=== PATIENT | male | born 1980 | race Caucasian/White ===

== ENCOUNTER 2024-12-15 09:27 | Emergency (ER) | payer OTHER, SELFPAY ==
--- OUTSIDE RECORDS SUMMARY | 2023-11-29 08:45 | XMS_ITS | Continuity of Care Document ---
Author Organization [facility] Address [address] [place] [address] Phone Care Team Providers Care Firer Bisque Kiln Name Role Phone Sona Portillo MD Unavailable Unavailable Allergies, Adverse Reactions, Alerts Substance Reaction Status Criticality No Known Allergies Active No Inform ation Medications Medication Instructions Dosage Effective Dates (start - stop) Status Comments sertraline 100 mg tablet TAKE 1 TABLET BY MOUTH ONCE DAILY TAKE WITH 50MG TABLETS - Active bupropion HCl XL 150 mg 24 hr tablet, extended release - No Longer Active sertraline 50 mg tablet TAKE 1 TABLET BY MOUTH ONCE DAILY. TAKE WITH 100 MG TABLET - No Longer Active Procedures Procedure Date Office o/p est low 20-29 min Advance Directives Directive Yes / No Effective Date File Name No Information Encounters Encounter Description Practice Location Reason(s) For Visit Diagnoses Date Provider Providers Copied on Encounter Office o/p est low 20-29 min [facility], [address] [place], [address], [place] tel:[phone] Urgent Care musculoskelet al pain (chief complaint) Quadriceps tendinitis Sep-0 4 Lindsey Magallanes. [facility], [facility] [place], [place], [id number], [place]. tel:[phone] Referring Provider: Yared Pradhan, [address] [facility] [address], [place], [address]. tel:[phone] Family History Family Member Type Diagnosis Age At Onset No Information Payers Payer name Insurance type Covered green party ID Natacha cowan(s) No Information Social History Type Description Quantity Date Captured Comments Alcohol Use Details Unknown Caffeine Use Details Unknown Tobacco Use Status No Information Smoking Status No Information Sex Male Vital Signs Date / Time: Height Weight BMI Pulse Rate Blood Pressure Temperature Respiratory Rate Body Surface Area Head Circumference Head Circ. Percentile Wt./Michael. Percentile BMI percentile Pulse Ox Inhaled Ox 2:08 PM 123.649 kg (272.60 lbs) 64 /min 114/73 mm[Hg] 98.70 F 18 /min 21 % Chief Complaint And Reason For Visit From encounter dated '11/29/2023 13:45'. musculoskeletal pain (chief complaint). Description: Onset: on 10/28/2023. Severity level is 6. It occurs intermittently. Location: right knee. There is no radiation. The pain is dull, sharp and throbbing. Context: there is no injury. The pain is aggravated by bending and Extending. The pain is relieved by OTC medicines (acetaminophen). Associated symptoms include limping. Pertinent negatives include bruising, swelling, tingling in the legs and weakness. Reason For Referral Reason For Referral No Information Plan Of Treatment Date Type Action Status Goal Diabetes Screeni ng (BMI 25 and above) - HgbA1C. Due on due Goal Lipid panel. Due on 024 due Goal Depression screening. Due on due Goal Td vaccine. Due on due Goal Blood Pressure Screening (An nual). Due on due Goal HIV Screen. Due on due Goal Hepatitis C screening. Due o n due Goal Unhealthy drug use screening . Due on due Goal Tdap. Due on due Goal Influenza vaccine. Due on Se due Goal Alcohol Misuse Screening. Du e on due History Of Present Illness Encounter Date Complaint History Of Prese nt Illness musculoskeletal pain Onset: on 0 10/28/2023. Severity level is 6. It occurs intermittently. Location: right knee. There is no radiation. The pain is dull, sharp and throbbing. Context: there is no injury. The pain is aggravated by bending and Extending. The pain is relieved by OTC medicines (acetaminophen). Associated symptoms include limping. Pertinent negatives include bruising, swelling, tingling in the legs and weakness. Functional Status Date Functional Assessmen t No Information Instructions Date Instruction Additional Infor mation Recommend cold compr esses 10-15 minutes every 3-4 hours while awakeMay use compression sleeve or wrap - Recommend tylenol 1000 mg every 6 hours and/or ibuprofen 600 mg every 6 hour or aleve 1-2 tablet twice per day for pain.- Do exercises 1-2 times per day - F/U with PCP if persist >10-14 days or sooner for worsening Related to Quadriceps tendinitis Assessments Type Assessment Date assessment Quadriceps tendinitis impression Clinically consisten t with inflammation insertion of quadriceps Mental Status Date Cognitive Assessment Orientation - Dawes ed to time, place, person, situation. Patient Care Teams Name Effective Dates (start - stop) Status Members No Information
--- NOTE | ~2024-12-15 | CT_ITS ---
EXAMINATION: CT soft tissue neck w con DATE: 12/15/2024 13:31 INDICATION: Worsening left throat pain TECHNIQUE: Computed tomography (CT) of the neck was performed with 75 mL Omnipaque-350 intravenous contrast. Automated exposure control and iterative reconstruction technique were employed. The dose-length product was 595.90 mGy-cm. COMPARISON: None FINDINGS: Orbits are normal. The paranasal sinuses are clear. Mastoid air cells and middle ear cavities are clear. Submandibular and parotid glands are normal and symmetric. Thyroid gland is unremarkable. There are scattered normal-sized lymph nodes in the neck, no lymphadenopathy. Airway is unremarkable. Cascade and lingual tonsils are unremarkable. There is also normal epiglottis, aryepiglottic folds and retropharyngeal soft tissues. No abnormal masses, abscess or other abnormal fluid collections. The vasculature is patent and normal in caliber. Superior mediastinum is unremarkable. Lung apices are normal. Moderate lower cervical spondylosis. IMPRESSION: 1. Moderate lower cervical spondylosis. Otherwise unremarkable neck CT. Reviewed, dictated and finalized at location A.
--- OUTSIDE RECORDS SUMMARY | 2024-12-15 09:30 | XMS_ITS | Clinical Summary ---
Author Organization [facility] Address [address] [place] [address] Care Team Providers Care Beer Cooler Name Role Phone Unknown, Provider Primary Care Provider Unavaila ble Source Comments [facility],non-owned Affiliates and Associated Physician Practices is amultiple site organization consisting of ambulatory clinics and hospital sitesin [place], [place], [place] and [place]. This disclosure is being madepursuant to the Care Everywhere program and may not contain all information available regarding this patient. Last updated 17.[facility] Allergies No known active allergies Medications * Be aware that medications may not be up to date on this document. Alwaysverify current medications with the patient. No known medications Social History Tobacco Use Types Packs/Day Years Used Date Smoking Tobacco: Never Assessed Sex and Gender Information Value Date Recorded Sex Assigned at Not on file Legal Sex Male 10:27 AM CARDIOVASCULAR RN Gender Identity Not on file Sexual Orientation Not on file Last Filed Vital Signs Vital Sign Reading Time Taken Comments Blood Pressure 124/82 03/24/2016 11:17 AM CARDIOVASCULAR RN Pulse 88 03/24/2016 11:17 AM CARDIOVASCULAR RN Temperature 36.8 C (98.3 F) 03/24/2016 11:17 AM CARDIOVASCULAR RN Respiratory Rate 16 03/24/2016 11:17 AM CARDIOVASCULAR RN Oxygen Saturation 98% 03/24/2016 11:17 AM CARDIOVASCULAR RN Inhaled Oxygen Concentration - - Weight 129.3 kg (285 lb) 03/24/2016 11:17 AM CARDIOVASCULAR RN Height 182.9 cm (6') 03/24/2016 11:17 AM CARDIOVASCULAR RN Body Mass Index 38.65 03/24/2016 11:17 AM CARDIOVASCULAR RN Plan of Treatment Health Maintenance Due Date Last Done Comments LIPID TESTING 1982 HIV SCREENING 1997 HEPATITIS C SCREENING 01/13/2000 DTAP/TDAP/TD VACCINES (1 - Tdap) 2001 HEPATITIS B VACCINE (1 of 3 - 19+ 3-dose series) 2001 HPV VACCINE (1 - 3-dose SCDM series) 2009 DEPRESSION SCREENING 03/29/2024 COVID-19 VACCINE (1 - 4-2 5 season) 2024 INFLUENZA VACCINE (#1) 2024 ZOSTER VACCINE (1 of 2) 01/18/2032 HIB VACCINE Aged Out No longer eligi ble based on patient's age to complete this topic MENINGOCOCCAL (Group B) VACC INE SHARED DECISION-MAKING Aged Out No longer eligibl e based on patient's age to complete this topic MENINGOCOCCAL GROUPS A/C/Y/W VACCINE Aged Out No longer eligible b ased on patient's age to complete this topic PNEUMOCOCCAL VACCINE Aged Out No long er eligible based on patient's age to complete this topic Insurance Care Teams Beer Cooler Relationship Specialty Start Date End Date Unknown, Provider PCP - General 03/24/16
[2024-12-15 10:32] VITALS: BP 135/89; PULSE 95; RESP 18; TEMP 37.6; O2SAT 100
--- OUTSIDE RECORDS SUMMARY | 2024-12-15 12:00 | XMS_ITS | Clinical Summary ---
Author Organization [facility] Address [address] [place] [address] Care Team Providers Care Retort Operator Name Role Phone Unknown, Provider Primary Care Provider Unavaila ble Source Comments [facility],non-owned Affiliates and Associated Physician Practices is amultiple site organization consisting of ambulatory clinics and hospital sitesin [place], [place], [place] and [place]. This disclosure is being madepursuant to the Care Everywhere program and may not contain all information available regarding this patient. Last updated 17.[facility] Allergies No known active allergies Medications * Be aware that medications may not be up to date on this document. Alwaysverify current medications with the patient. No known medications Social History Tobacco Use Types Packs/Day Years Used Date Smoking Tobacco: Never Assessed Sex and Gender Information Value Date Recorded Sex Assigned at Not on file Legal Sex Male 10:27 AM HEDGE TRIMMER Gender Identity Not on file Sexual Orientation Not on file Last Filed Vital Signs Vital Sign Reading Time Taken Comments Blood Pressure 124/82 03/24/2016 11:17 AM HEDGE TRIMMER Pulse 88 03/24/2016 11:17 AM HEDGE TRIMMER Temperature 36.8 C (98.3 F) 03/24/2016 11:17 AM HEDGE TRIMMER Respiratory Rate 16 03/24/2016 11:17 AM HEDGE TRIMMER Oxygen Saturation 98% 03/24/2016 11:17 AM HEDGE TRIMMER Inhaled Oxygen Concentration - - Weight 129.3 kg (285 lb) 03/24/2016 11:17 AM HEDGE TRIMMER Height 182.9 cm (6') 03/24/2016 11:17 AM HEDGE TRIMMER Body Mass Index 38.65 03/24/2016 11:17 AM HEDGE TRIMMER Plan of Treatment Health Maintenance Due Date [...] to complete this topic Insurance Care Teams Retort Operator Relationship Specialty Start Date End Date Unknown, Provider PCP - General 03/24/16
--- OUTSIDE RECORDS SUMMARY | 2024-12-15 12:00 | XMS_ITS | Clinical Summary ---
Author Organization [facility] Address [facility] [place] [address] Care Team Providers Care Transfer Iron Operator Name Role Phone Rebekah Orourke [facility] Primary Care Provider + Allergies No known active allergies Medications escitalopram 10 MG tabletIndication s:Anxiety and depression Take 1 tablet (10 mg total) by mouth daily. 30 tablet 1 01/12/2020 Active buPROPion XL 150 MG 24 hr tabletIndication s:Anxiety and depression Take 1 tablet (150 mg total) by mouth daily. 90 tablet 1 01/12/2020 Active Active Problems No known active problems Family History Medical History Relation Comments None Father Cancer Maternal Grandmother lung peripheral artery disease Mother Relation Status Comments Father Alive Maternal Grandmother Mother Alive Social History Tobacco Use Types Packs/Day Years Used Date Smoking Tobacco: Former Cigarettes 0.3 17 0 06/29/2002 - 06/30/2019 Smokeless Tobacco: Never Alcohol Use Standard Drinks/Week Comments Yes 0 (1 standard drink = 0.6 oz pur e alcohol) Sex and Gender Information Value Date Recorded Sex Assigned at Not on file Legal Sex Male 10:19 AM CDT Gender Identity Not on file Sexual Orientation Not on file Last Filed Vital Signs Vital Sign Reading Time Taken Comments Blood Pressure 138/88 01/12/2020 11:46 AM CDT Pulse 80 01/12/2020 11:46 AM CDT Temperature 37 C (98.6 F) 01/12/2020 11:46 AM CDT Respiratory Rate 20 01/12/2020 11:46 AM CDT Oxygen Saturation 98% 01/12/2020 11:46 AM CDT Inhaled Oxygen Concentration - - Weight 136.5 kg (301 lb) 01/12/2020 11:46 AM CDT Height 182.9 cm (6') 01/12/2020 11:46 AM CDT Body Mass Index 40.82 01/12/2020 11:46 AM CDT Plan of Treatment Health Maintenance Due Date Last Done Comments Annual Physical 1985 Hepatitis C 01/18/2000 DTaP, Tdap and Td Vaccines ( 1 - Tdap) 2001 Hepatitis B Vaccines (1 of 3 - 19+ 3-dose series) 2001 HPV Vaccines (1 - 3-dose SCD M series) 2009 COVID-19 Vaccine ( - 2023-2 5 season) 2024 Meningococcal B Vaccine Aged Out No l onger eligible based on patient's age to complete this topic Meningococcal Vaccine Aged Out No anita bernie eligible based on patient's age to complete this topic Pneumococcal Vaccine: Pediat rics (0 to 5 Years) and At-Risk Patients (6 to 49 Years) Aged Out No longer eligible b ased on patient's age to complete this topic RSV Immunizations Under 20 Months Aged Out No longer eligible based on patient's age to complete this topic Care Teams Transfer Iron Operator Relationship Specialty Start Date End Date Rebekah Orourke, PHOTOTYPESETTING EQUIPMENT MONITOR- [address], [address] [place] [address] PCP - General NURSE PRACTITIONER 07/14/19
--- NOTE | 2024-12-15 12:10 | ED_ITS ---
HPI - General Adult General Chief complaint: Upper Respiratory Infection Stated complaint: throat issues for a month Time Seen by Provider: 12/15/24 11:44 History of Present Illness HPI narrative: 44-year-old male presents to the emergency department for evaluation for worsening left throat pain. Patient states this has been ongoing issue for approximately a last month. Patient has had 2 follow-up appointments with urgent care. Patient was started on antibiotics and steroids both times. Patient states his most recent visit to Urgent Care was just a few days ago and patient had worsening symptoms the next day. Patient states he has been doing symptomatic treatment for this but states his pain continues to worsen. Patient describes a sharp left-sided pain with swallowing. Patient does have follow-up for ENT but has not yet called to schedule follow-up appointment. Patient is also concerned because a family member was recently diagnosed with throat cancer. Related Data Allergies Allergy/AdvReac Type Severity Reaction Status Date / Time No Known Allergies Allergy Uncoded 01/02/19 11:19 Review of Systems 2 Review of Systems: All systems reviewed & are unremarkable except as noted in HPI and below Exam 2 Narrative: APPEARANCE: Well appearing, no pain, no distress, well-nourished. HEAD: normocephalic, atraumatic. EYES: PERRLA/EOMI, conjunctivae clear. NOSE: Normal no drainage EARS:TMS clear with good light reflex. THROAT: Pharynx clear, no exudate. NECK: Supple. No adenopathy, no masses. RESPIRATORY: Airway patent, respirations nonlabored. Clear to auscultation bilaterally, no rales, rhonchi, wheezing. CARDIOVASCULAR: Regular rate and rhythm without murmurs rubs or gallops. ABDOMINAL: Soft, nontender, nondistended, normal bowel sounds MUSCULOSKELETAL: Moves all extremities. Strength/ROM intact, No edema, No calf tenderness. NEURO: Alert. Cranial nerves II through XII intact. Good gait. Good coordination SKIN: Warm, dry. Normal Color Course Vital Signs Vital signs: Vital Signs Temperature 99.6 F 12/15/24 10:32 Pulse Rate 95 12/15/24 10:32 Respiratory Rate 18 12/15/24 10:32 Blood Pressure 135/89 12/15/24 10:32 Pulse Oximetry 100 12/15/24 10:32 Oxygen Delivery Room Air 12/15/24 10:32 Temperature 99.6 F 12/15/24 10:32 Pulse Rate 95 12/15/24 10:32 Respiratory Rate 20 12/15/24 15:15 Blood Pressure 135/89 12/15/24 10:32 Pulse Oximetry 100 12/15/24 10:32 Oxygen Delivery Room Air 12/15/24 13:23 Medical Decision Making MDM Narrative Medical decision making narrative: 44-year-old male presents to the emergency department for evaluation for throat pain was worse on the left than right. Patient is afebrile with no leukocytosis hemoglobin of 16.5. Patient has no significant acute abnormalities on his CMP patient was negative for influenza RSV COVID and for strep. CT scan of the neck showed no acute abnormalities. Patient reports he has been on multiple courses of steroids but has never been on antibiotics for this. Patient was strongly encouraged close follow-up with ENT. Patient was also educated on various symptomatic home treatments. Patient was comfortable with discharge and close follow-up. Differential Diagnosis Differential Diagnosis: Tonsillitis, pharyngitis, peritonsillar abscess, posterior pharyngeal abscess, tumor, strep throat, COVID, RSV, influenza Vital Signs Vital Signs: Vital Signs Temperature 99.6 F 12/15/24 10:32 Pulse Rate 95 12/15/24 10:32 Respiratory Rate 18 12/15/24 10:32 Blood Pressure 135/89 12/15/24 10:32 Pulse Oximetry 100 12/15/24 10:32 Oxygen Delivery Room Air 12/15/24 10:32 Temperature 99.6 F 12/15/24 10:32 Pulse Rate 95 12/15/24 10:32 Respiratory Rate 20 12/15/24 15:15 Blood Pressure 135/89 12/15/24 10:32 Pulse Oximetry 100 12/15/24 10:32 Oxygen Delivery Room Air 12/15/24 13:23 Lab Data Lab results reviewed: Yes I reviewed the patient's lab results. 12/15/24 13:20 12/15/24 13:24 Labs: Lab Results 12/15/24 12/15/24 Range/Units 13:20 13:24 WBC 7.5 (4.5-10.0) K/mm3 RBC 5.04 (4.6-6.20) M/mm3 Hgb 16.5 (14.0-18.0) g/dL Hct 48.1 (42.0-52.0) % MCV 95.4 (80-100) fl MCH 32.7 (26-34) pg MCHC 34.3 (32-36) g/dl RDW 12.5 (11.5-14.5) % Plt Count 258 (150-375) k/mm3 MPV 9.3 (7.4-10.4) fl Immature Gran % (Auto) 1.1 H (0-0.5) % Neut % (Auto) 83.2 H (45.5-73.1) % Lymph % (Auto) 13.5 L (18.3-44.2) % Mchen[place] % (Auto) 2.1 L (2.6-8.5) % Eos % (Auto) 0.0 (0-4.4) % Baso % (Auto) 0.1 L (0.2-1.2) % Lymph # (Auto) 1.01 (0.9-3.2) K/mm3 [place] # (Auto) 0.2 (0.1-0.6) K/mm3 Eos # (Auto) 0.0 (0-0.3) K/mm3 Baso # (Auto) 0.0 (0.0-0.1) K/mm3 Abs Immat Gran (auto) 0.08 H (0.00-0.031) K/mm3 Absolute Neuts (auto) 6.2 (1.3-6.7) K/mm3 Absolute Nucleated RBC 0.000 (0.0-0.012) K/mm3 Nucleated RBC % 0.0 (0.0-0.2) % Sodium 140 (137-145) mmol/L Potassium 4.6 (3.4-5.0) mmol/L Chloride 105 (98-107) mmol/L Carbon Dioxide 25 (22-30) mmol/L Anion Gap 10 (4-12) mmol/L BUN 18 (9-20) mg/dL Creatinine 1.00 1.10 (0.7-1.3) mg/dL Estim Creat Clear Calc 115 105 ml/min Estimated GFR > 60 > 60 (59 - ) Glucose 113 H (65-110) mg/dL Calcium 9.2 (8.4-10.2) mg/dL Total Bilirubin 0.4 (0.2-1.3) mg/dL AST 23 (17-59) U/L ALT 27 (6-50) U/L Alkaline Phosphatase 73 (38-126) U/L C-Reactive Protein < 0.5 (<1.0) mg/dL Total Protein 8.0 (6.3-8.2) g/dL Albumin 4.5 (3.5-5.1) g/dL Influenza A (RT-PCR) Negative (Negative) Influenza B (RT-PCR) Negative (Negative) RSV (RT-PCR) Negative (Negative) SARS-CoV-2 RNA (RT-PCR) Negative (Negative) Group A Strep (PCR) Not detected (Negative) Imaging Data Radiologist's impression: Impressions Soft Tissue Neck CT 12/15/24 13:53 IMPRESSION: 1. Moderate lower cervical spondylosis. Otherwise unremarkable neck CT. Discharge Plan Discharge Clinical Impression: Sore throat Patient Disposition: Home Condition: Stable Instructions: Antibiotic Form, Pharyngitis (ED) Additional Instructions: Scheduled Aleve as directed for the next 3-5 days. Antibiotic as directed until completed. [place] as needed for additional pain control. Have close follow-up with ENT. Patient Language: Gambian Prescriptions: New hydrocodone-acetaminophen 5-325 mg tablet 1 tablet PO Q12H PRN (Reason: pain) Qty: 10 0RF amoxicillin-pot clavulanate 875-125 mg tablet 1 tablet PO Q12H 7 Days Qty: 14 0RF Follow-up/Referrals: Hang Mg MD [Physician, Ear, Nose, Throat] UNKNOWN,DOCTOR [Primary Care Provider]
[2024-12-15 13:27] LABS: Hematocrit 48.1 % (42.0-52.0); Hemoglobin 16.5 g/dL (14.0-18.0); Immature Granulocyte Percent A 1.1 % (0-0.5); Lymphocytes Absolute Auto 1.01 K/mm3 (0.9-3.2); Mean Corpuscular HGB Conc 34.3 g/dl (32-36); Mean Corpuscular Hemoglobin 32.7 pg (26-34); Mean Corpuscular Volume 95.4 fl (80-100); Nucleated Red Blood Cells Absolute Auto 0.000 K/mm3 (0.0-0.012); Nucleated Red Blood Cells Perc 0.0 % (0.0-0.2); Platelet Count Result 258 k/mm3 (150-375); Red Blood Count 5.04 M/mm3 (4.6-6.20); White Blood Count 7.5 K/mm3 (4.5-10.0)
[2024-12-15 13:27] LABS: Estimated CRCL calculation 105 ml/min; Estimated Glomerular Filt Rate > 60
[2024-12-15 13:49] LABS: Alanine Aminotransferase 27 U/L (6-50); Albumin Level 4.5 g/dL (3.5-5.1); Alkaline Phosphatase 73 U/L (38-126); Anion Gap 10 mmol/L (4-12); Aspartate Amino Transferase 23 U/L (17-59); Bilirubin,Total 0.4 mg/dL (0.2-1.3); Blood Urea Nitrogen 18 mg/dL (9-20); CRP < 0.5 mg/dL (<1.0); Calcium 9.2 mg/dL (8.4-10.2); Carbon Dioxide 25 mmol/L (22-30); Chloride 105 mmol/L (98-107); Estimated CRCL calculation 115 ml/min; Estimated Glomerular Filt Rate > 60; Glucose 113 mg/dL (65-110); Potassium 4.6 mmol/L (3.4-5.0); Sodium 140 mmol/L (137-145); Total Protein 8.0 g/dL (6.3-8.2)
[2024-12-15 13:52] LABS: Strep Group A RT-PCR NOT DETECTED (Negative)
[2024-12-15 14:04] LABS: Influenza A QL RT-PCR Negative (Negative); Influenza B QL RT-PCR Negative (Negative); RSV RNA, RT-PCR Negative (Negative); SARS-CoV-2 RNA PCR Negative (Negative)
[2024-12-15 15:15] VITALS: RESP 20
== END 2024-12-15 15:41 | disposition home or self-care (01) ==
PROVIDERS: Emergency Provider Emergency Medicine
DX: J02.9 Acute pharyngitis, unspecified (principal); Z20.822 Contact with and (suspected) exposure to COVID-19
CPT/HCPCS: 36415; 70491; 80053; 85025; 86140; 87637; 87651; 99284; A9270; Q9967